=== PATIENT | male | born 1950 | race Caucasian/White ===

== ENCOUNTER → 2016-12-13 | Outpatient (CLI) | payer OTHER, MEDICARE | LOC: FIMAGING 09:55 | PROVIDERS: ATTEND Neurological Surgery | DX: M48.06 Spinal stenosis, lumbar region (principal); M54.16 Radiculopathy, lumbar region; M51.36 Other intervertebral disc degeneration, lumbar region; M51.37 Other intervertebral disc degeneration, lumbosacral region; M51.34 Other intervertebral disc degeneration, thoracic region ==

== ENCOUNTER → 2016-12-20 | Outpatient (CLI) | payer OTHER, MEDICARE ==
--- NOTE | 2016-12-20 09:43 | CPEKG ---
Heart Rate: 65 RR Interval: 923 P-R Interval: 148 QRSD Interval: 96 QT Interval: 392 QTC Interval: 408 P [place]: 68 QRS [place]: 69 T Wave [place]: 19 EKG Severity - NORMAL ECG - EKG Impression: SINUS RHYTHM Electronically Signed By: Sudhir Johnson 20-Dec-2016 14:38:28
== END ==
LOC: FCP 09:20
PROVIDERS: ATTEND Family Medicine
DX: Z01.810 Encounter for preprocedural cardiovascular examination (principal); I10 Essential (primary) hypertension

== ENCOUNTER → 2016-12-20 | Outpatient (CLI) | payer OTHER, MEDICARE | LOC: FLAB 10:03 → FIMAGING 10:03 → EDSTATUS 12:06 | PROVIDERS: ATTEND Family Medicine | DX: I10 Essential (primary) hypertension (principal); M79.605 Pain in left leg; M62.81 Muscle weakness (generalized) ==

== ENCOUNTER 2017-01-22 05:48 | Observation (INO) | payer OTHER, MEDICARE ==
[2017-01-22] MEDS ORDERED: ceFAZolin 2 GM/DEXTROSE 100 ML IV ONE (06:00)
[2017-01-22] MEDS ORDERED: CHLORHEXIDINE GLUC HIBICLENS 118 ML BTL TP ONE (06:00)
[2017-01-22] MEDS ORDERED: LR 1,000 ML IV ONE (06:11)
[2017-01-22] MEDS ORDERED: LIDOCAINE 1% 5 ML SDV ID PRN (06:11)
[2017-01-22] MEDS ORDERED: BUPIVACAINE/EPI 0.25% 30 ML SDV ONE ×2 (06:47→07:56)
[2017-01-22] MEDS ORDERED: THROMBIN (BOVINE) 5,000 UNIT VIAL TP ONE (06:47)
[2017-01-22] MEDS ORDERED: DEPO METHYLPREDNISOLONE 40 MG/ML SDV ONE (06:47)
[2017-01-22] MEDS ORDERED: BACITRACIN 50,000 UNITS/10 ML SYR IRR ONE ×2 (06:48→07:27)
[2017-01-22] MEDS ORDERED: fentaNYL 250 MCG/5 ML INJ ONE (07:09)
[2017-01-22] MEDS ORDERED: PROPOFOL/EMULSION 500 MG/50 ML BOTTLE IV ONE ×2 (07:09→08:52)
[2017-01-22] MEDS ORDERED: MIDAZOLAM 2 MG/2 ML VIAL ONE (07:11)
[2017-01-22] MEDS ORDERED: Tadalafil [Cialis] 20 MG PO PRN (07:13)
[2017-01-22] MEDS ORDERED: NAPROXEN SODIUM 220 MG TAB PO PRN (07:13)
[2017-01-22] MEDS ORDERED: HYDROmorphONE/DILAUDID 1 MG/ML SYR IVP PRN (07:14)
[2017-01-22] MEDS ORDERED: METHOCARBAMOL 750 MG TAB PO PRN (07:14)
[2017-01-22] MEDS ORDERED: ACETAMINOPHEN 325 MG TAB PO PRN (07:14)
[2017-01-22] MEDS ORDERED: POLYETHYLENE GLYCOL 3350 17 GM PKT PO PRN (07:14)
[2017-01-22] MEDS ORDERED: TEMAZEPAM 15 MG CAP PO PRN (07:14)
[2017-01-22] MEDS ORDERED: LACTULOSE 20 GM/30 ML UDCUP PO PRN (07:14)
[2017-01-22] MEDS ORDERED: DIAZEPAM 5 MG TAB PO PRN (07:14)
[2017-01-22] MEDS ORDERED: ONDANSETRON 4 MG/2 ML VIAL IVP PRN ×2 (07:14)
[2017-01-22] MEDS ORDERED: DIAZEPAM 10 MG/2 ML SYR IVP PRN (07:14)
[2017-01-22] MEDS ORDERED: NALOXONE HCL 0.4 MG/ML INJ IVP PRN (07:14)
[2017-01-22] MEDS ORDERED: diphenhydrAMINE 25 MG CAP PO PRN (07:14)
[2017-01-22] MEDS ORDERED: ONDANSETRON DISINTEGRATING 4 MG TAB PO PRN (07:14)
[2017-01-22] MEDS ORDERED: MAGNESIUM HYDROXIDE 30 ML UDCUP PO PRN (07:14)
[2017-01-22] MEDS ORDERED: BISACODYL 10 MG SUPP PR PRN (07:14)
[2017-01-22] MEDS ORDERED: oxyCODONE IR 5 MG TAB PO PRN (07:14)
[2017-01-22] MEDS ORDERED: morphINE PCA 30 MG/30 ML PCA IV PRN (07:14)
[2017-01-22] MEDS ORDERED: NS W/ 20 KCl/L 1,000 ML IV SCH (07:15)
[2017-01-22] MEDS ORDERED: LIDOCAINE 2% 5 ML SDV ONE (07:17)
[2017-01-22] MEDS ORDERED: ROCURONIUM 50 MG/5 ML VIAL ONE (07:17)
[2017-01-22] MEDS ORDERED: METOCLOPRAMIDE 10 MG/2 ML VIAL ONE (07:17)
[2017-01-22] MEDS ORDERED: DEXAMETHASONE 4 MG/ML VIAL ONE (07:17)
[2017-01-22] MEDS ORDERED: ONDANSETRON 4 MG/2 ML VIAL ONE (07:17)
[2017-01-22] MEDS ORDERED: CETIRIZINE 10 MG TAB PO PRN (09:00)
[2017-01-22] MEDS ORDERED: FAMOTIDINE 20 MG/NACL 50 ML IV SCH (09:00)
[2017-01-22] MEDS ORDERED: PHENYLEPHRINE HCL 100 MCG/ML SYR ONE (09:24)
[2017-01-22] MEDS ORDERED: SUGAMMADEX SODIUM 200 MG/2 ML VIAL IVP ONE (09:44)
[2017-01-22] MEDS ORDERED: fentaNYL 100 MCG/2 ML INJ ONE ×2 (10:26→10:50)
[2017-01-22] MEDS ORDERED: NON-FORMULARY NEW DRUG (Ranitidine Hcl [Zantac 75] 75 MG) PO PRN (10:32)
--- NOTE | 2017-01-22 10:36 | SOAPPROG ---
SOAP Progress Note Assessment/Plan: Post Op Visit: S: Awake and alert. Pt with expected lower back pain. O: AFVSS/PERRLA/EOMI no droop CN 2-12 grossly intact +lt touch 5/5 BUE/BLE = CDI A/P: 66 yo male that is s/p laminectomy L2-4 -orders in place -call with any questions or concerns -take medications as directed -pt seen by Dr Pegureo as well 01/22/17 10:32 ICD10 Worksheet Patient Problems: Problems Problem Status Onset Lumbar radicular pain Acute Lumbar stenosis Acute - ICD10 Problem Qualifiers (1) Lumbar stenosis (2) Lumbar radicular pain
[2017-01-22 11:05] VITALS: RESP 16
--- NOTE | 2017-01-22 11:12 | GOP ---
[f rep st] OPERATIVE REPORT DATE OF OPERATION: 01/22/2017 SURGEON: Dorothy Peguero MD [facility] PORTFOLIO LEADER: Jorge Alberto Kirk PA-C. PREOPERATIVE DIAGNOSIS: Lumbar spondylosis, bilateral lumbosacral radiculopathy, severe lumbar sten osis L2 through L4, left greater than right, radiculopathy, prior lumbar surgery L4-5, as well as lo wer thoracic decompression, severe multilevel degenerative disk disease. POSTOPERATIVE DIAGNOSIS: Lumbar spondylosis, bilateral lumbosacral radiculopathy, severe lumbar kenton nosis L2 through L4, left greater than right, radiculopathy, prior lumbar surgery L4-5, as well as l ower thoracic decompression, severe multilevel degenerative disk disease. PROCEDURE PERFORMED: Left L2-3 giulia laminectomy, laminotomy with left and central decompression at L2, L3, L4 with medial facetectomy, as well as bilateral L3-4 medial facetectomies, laminectomy, and bilateral decompressions L3-4 ([id number]), microscope, fluoroscopy. FINDINGS: ESTIMATED BLOOD LOSS: 50 cc. INDICATIONS: The patient is a 66-year-old gentleman who has had both thoracic decompressions and lilia mbar laminectomy at L4-5, as well as cervical arthrodesis and fusion with good result, who came in c omplaining of left greater than right radiculopathy but bilateral symptoms in both legs and some wea kness in the right leg. His MRI demonstrated interval progression of stenosis at L2-3, L3-4 compared to prior films, and I suggested a 2-level decompression. Superimposed upon this he had terrible de generative disk disease and severe multilevel foraminal stenosis that could in fact be related to hi s problem. Unfortunately, to fix this would require a multilevel lumbar fusion with instrumented sc rews and rods, and I wanted to try to avoid this if possible. Therefore, I suggested a decompressio n alone. Risk of spinal fluid leak, continued symptoms, and possible need for a much larger surgery was discussed. He understood this and wanted to try the smaller one to see if we could achieve the clinical results that we desire. DESCRIPTION OF PROCEDURE: Patient was taken to the operating room, placed in supine position. Gene ral anesthesia was begun. He was flipped prone on the Christos frame. Care was taken to pad all poin ts of contact. His back was sterilely prepped and draped in usual fashion. A localizing x-ray was taken. We made a 3 cm midline incision above the L2-3, L3-4 interspace. The subcutaneous tissue wa s dissected using Bovie cautery down to the fascia. A subperiosteal dissection was made down the in ferior lamina of L2. The complete lamina of L3 was exposed. A localizing x-ray was taken. A self- retaining retractor was placed. We introduced the operative microscope. We removed the L3 spinous process and the inferior L2 spino us process. We performed a complete bilateral laminectomy of L3, and bilateral medial facetectomy. There was significant left greater than right facet arthropathy at L3-4 as well as a degenerative s coliotic tilt at L3-4 compared to the right. We performed a central decompression initially and worked our way wider preserving the pars interart icularis bilaterally at L3. We did perform bilateral medial facetectomies and bilateral decompressi ons at L3-4. We worked our way up to the L2-3 level. We removed the ligamentum flavum and performe d a central and left paracentral decompression and performed a minimal medial facetectomy, although not much of the facet joint could be removed at L2-3 because of the steepness of the facet joint its elf. A nice decompression was obtained. We irrigated with antibiotic saline solution, saw the final x-ray confirming the extent of our decom pressions at L2-3 through 4. We then closed the incision in multiple layers using Vicryl sutures. Running PDS was placed in the skin. Steri-Strips were applied. The patient was reversed from anest hesia, extubated, and transferred to recovery room in stable condition. There were no complications . COMPLICATIONS: None. /[id number]/MODL
[2017-01-22] MEDS: HYDROCODONE/APAP 10/325 TAB PO PRN ×2 (11:49→21:25)
[2017-01-22] MEDS: SENNOSIDES/DOCUSATE SODIUM TAB PO SCH ×2 (12:17→19:52)
[2017-01-22] MEDS: LISINOPRIL 20 MG TAB PO SCH (14:10)
[2017-01-22] MEDS: FAMOTIDINE 20 MG TAB PO SCH (19:52)
--- NOTE | 2017-01-23 07:08 | NEUSURGPN ---
Date of Surgery: 01/22/17 Post Op Day: 1 Assessment/Plan: Assessment: 66 yo male that is s/p laminectomy L2-4 POD #1 Plan: -s/p laminectomy L2-L4: pt states minimal back pain with "my legs feel great" -PT/OT pending this am -plan for dc later today if passes therapies -rxs-Pt has filled already -no brace needed -follow up in 2-3 weeks for a post op visit -orders in place -call with any questions or concerns -take medications as directed -pt seen by Dr Peguero as well 01/22/17 10:32 Subjective: Awake and alert. NAD. Pt doing well and is pleased with the surgery. No luna/ neck/chest/abd or gu complaints. No f/c/n/v/d. Objective: AFVSS/PERRLA/EOMI no droop CN 2-12 grossly intact +lt touch 5/5 BUE/BLE = CDI Neuro Check Frequency: per routine Urinary Catheter in Place: No - Physician Discussed Patient with : Sudhir Patient Seen by : Sudhir Neurosurgery Physical Exam - Vitals, I&O, Labs I and O 01/22/17 01/23/17 01/24/17 05:59 05:59 05:59 Intake Total 1525 Output Total 950 Balance 575 Weight 104.326 kg Intake: Oral (ml) 650 IV Intake (ml) 600 IV Infused (ml) 275 NS W/ 20 KCl/L 1,000 ml @ 225 75 mls/hr IV CONT MYRON Rx #:[id number] ceFAZolin 1 GM/DEXTROSE 50 50 ml @ 200 mls/hr IV Q8HRS MYRON Rx#:[id number] Output: Urine (ml) 900 Toilet 900 Estimated Blood Loss (ml) 50 Other: Number of Voids Toilet 1 Vital Signs Temp Pulse Resp BP Pulse Ox 36.9 C 77 16 131/74 H 94 01/23/17 03:13 01/23/17 03:13 01/23/17 03:13 01/23/17 03:13 01/23/17 03:13 ICD10 Worksheet Patient Problems: Problems Problem Status Onset Lumbar radicular pain Acute Lumbar stenosis Acute - ICD10 Problem Qualifiers (1) Lumbar stenosis (2) Lumbar radicular pain
[2017-01-23 07:25] VITALS: BP 134/62; PULSE 70; TEMP 97.5; O2SAT 93
[2017-01-23] MEDS: HYDROCODONE/APAP 10/325 TAB PO PRN (07:27)
[2017-01-23] MEDS: LISINOPRIL 20 MG TAB PO SCH (07:27)
[2017-01-23] MEDS: FAMOTIDINE 20 MG TAB PO SCH (07:28)
[2017-01-23] MEDS: SENNOSIDES/DOCUSATE SODIUM TAB PO SCH (07:28)
[2017-01-25] MEDS ORDERED: ENOXAPARIN 40 MG/0.4 ML SYR SC SCH (09:00)
== END 2017-01-23 10:55 | disposition home or self-care (01) ==
LOC: F3N 05:48 → INTOOBSV 05:48 → F3N 11:17
PROVIDERS: ADMIT Neurological Surgery; ATTEND Neurological Surgery
PROC: B01B1ZZ Fluoroscopy of Spinal Cord using Low Osmolar Contrast (ICD-10-PCS; principal; 2017-01-22 07:30)
PROC: 00NY0ZZ Release Lumbar Spinal Cord, Open Approach (ICD-10-PCS; principal; 2017-01-22 07:30)
PROC: 8E0WXBZ Computer Assisted Procedure of Trunk Region (ICD-10-PCS; principal; 2017-01-22 07:30)
DX: M48.06 Spinal stenosis, lumbar region (principal); M48.04 Spinal stenosis, thoracic region; Z98.1 Arthrodesis status; M51.36 Other intervertebral disc degeneration, lumbar region; M54.16 Radiculopathy, lumbar region
CPT/HCPCS: 63047; 63048; 76001; 97161; 97165; G8978; G8979; G8980; G8987; G8988; G8989; J0690; J1100; J2250; J2370; J2405; J2704; J2765; J3010; J1030

== ENCOUNTER → 2017-02-27 | Outpatient (CLI) | payer OTHER, MEDICARE | LOC: FIMAGING 06:42 | PROVIDERS: ATTEND Physician Assistant | DX: M51.34 Other intervertebral disc degeneration, thoracic region (principal); M47.894 Other spondylosis, thoracic region; M48.04 Spinal stenosis, thoracic region; M48.06 Spinal stenosis, lumbar region; M99.72 Connective tissue and disc stenosis of intervertebral foramina of thoracic region; M99.73 Connective tissue and disc stenosis of intervertebral foramina of lumbar region; M12.88 Other specific arthropathies, not elsewhere classified, other specified site; M51.86 Other intervertebral disc disorders, lumbar region; G95.89 Other specified diseases of spinal cord ==

== ENCOUNTER 2017-09-17 09:58 | Inpatient (IN) | payer OTHER, MEDICARE ==
[~2017-09-17 09:58] MED LIST: ROPIVACAINE 0.2% 80 MG, EPINEPHrine 0.2 MG, KETOROLAC TROMETHAMINE 30 MG in SYRINGE 0 ML IU ONE; TRANEXAMIC ACID 3,000 MG in NS 50 ML IRR ONE; TRANEXAMIC ACID 3,000 MG/50 ML BAG IRR ONE
[2017-09-17] MEDS ORDERED: ACETAMINOPHEN 325 MG TAB PO ONE (10:27)
[2017-09-17] MEDS ORDERED: FAMOTIDINE 20 MG TAB PO ONE (10:27)
[2017-09-17] MEDS ORDERED: DEXAMETHASONE 4 MG/ML VIAL IVP ONE (10:27)
[2017-09-17] MEDS ORDERED: ceFAZolin 2 GM/SWFI 2 GM/20 ML SYR IVP ONE (10:27)
[2017-09-17] MEDS ORDERED: LR 1,000 ML IV ONE (10:33)
[2017-09-17] MEDS ORDERED: LIDOCAINE 1% 2 ML INJ ID PRN (10:33)
--- NOTE | 2017-09-17 11:33 | PDANEPAE ---
ANE History of Present Illness 67 year old male presents for left total hip arthroplasty. ANE Past Medical History - Cardiovascular History Hx Hypertension: No Hx Arrhythmias: No Hx Chest Pain: No Hx Coronary Artery / Peripheral Vascular Disease: No Hx CHF / Valvular Disease: No Hx Palpitations: No - Pulmonary History Hx COPD: No Hx Asthma/Reactive Airway Disease: No Hx Recent Upper Respiratory Infection: Yes Hx Oxygen in Use at Home: No Hx Sleep Apnea: No Sleep Apnea Screening Result - Last Documented: Negative Pulmonary History Comment: OCCASIONAL CIGAR. BRONCHITIS 07/2017 - Neurologic History Hx Cerebrovascular Accident: No Hx Seizures: No Hx Dementia: No - Endocrine History Hx Diabetes: No Hypothyroid: No Hyperthyroid: No Obesity: mild - Renal History Hx Renal Disorders: No - Liver History Hx Hepatic Disorders: No - Neurological & Psychiatric Hx Hx Neurological and Psychiatric Disorders: No - Cancer History Hx Cancer: No - Congenital Disorder History Hx Congenital Disorders: No - GI History GERD: mild Hx Gastrointestinal Disorders: No Gastrointestinal History Comment: OCCASIONAL REFLUX USES OTC - Other Health History Other Health History: OSTEOARTHRITS. ED - Chronic Pain History Chronic Pain: Yes (LT HIP) - Surgical History Prior Surgeries: LUMBAR LAMINECTOMY 01/22/2017. LT KNEE SCOPE 05/2016. CERVICAL FUSION 2010. LUMBAR LAMINECTOMY 2010. FX R FEMUR. FX R PELVIC. ACL R KNEE ANE Review of Systems Review of systems is: negative Review of Systems: - Exercise capacity Exercise capacity: >=4 METS METS (RN): 4 METS ANE Patient History - Allergies Allergies/Adverse Reactions: No Allergies [NKDA] Allergy (Verified 05/22/16 13:09) SEASONAL Allergy (Uncoded 05/22/16 13:09) - Home Medications Home medications: home medication list seen and reviewed Home Medications: Cetirizine HCl/Pseudoephedrine [Zyrtec-D Tablet] 1 each PO DAILY PRN 12/26/16 [ Last Taken 01/21/17] Tadalafil [Cialis] 20 mg PO DAILY PRN 12/26/16 [Last Taken 01/01/17] Multivitamins [Multivitamin (*)] 1 each PO DAILY 08/07/17 [Last Taken Unknown] Naproxen Sodium [Aleve 220 MG (*)] 220 mg PO DAILY PRN 08/07/17 [Last Taken Unknown] - NPO status NPO Status: no food or drink >8 hours NPO Since - Liquids (Date): 09/17/17 NPO Since - Liquids (Time): 07:00 NPO Since - Solids (Date): 09/16/17 NPO Since - Solids (Time): 19:30 - Anes Hx Anes Hx: no prior problems - Smoking Hx Smoking Status: Former smoker Marijuana use: No - Alcohol Use Alcohol Use: Occasionally - Family Anes Hx Family Anes Hx: neg - N/A Family Hx Anesthesia Complications: NONE ANE Labs/Vital Signs - Vital Signs Vital Signs: reviewed preoperatively; see RN documention for details Blood Pressure: 128/82 Heart Rate: 79 Respiratory Rate: 14 O2 Sat (%): 92 Height: 185.42 cm Weight: 108.862 kg ANE Physical Exam - Airway Neck exam: FROM Mallampati Score: Class 2 Mouth exam: normal dental/mouth exam - Pulmonary Pulmonary: no respiratory distress - Cardiovascular Cardiovascular: regular rate and rhythym - ASA Status ASA Status: II ANE Anesthesia Plan Anesthesia Plan: general endotracheal anesthesia (General Anesthesia as back-up plan.), MAC, spinal
--- NOTE | 2017-09-17 11:43 | PDHPUP ---
History & Physical Update H&P update statement: This history and physical update is based on an assessment of the patient which was completed after admission or registration (within 24 hours), but prior to the surgery/procedure. H&P update: H&P reviewed & patient examined, no change in patient's condition since H&P completed
[2017-09-17] MEDS ORDERED: MIDAZOLAM 2 MG/2 ML VIAL IVP ONE (12:10)
[2017-09-17] MEDS ORDERED: MIDAZOLAM 2 MG/2 ML VIAL ONE (12:15)
[2017-09-17] MEDS ORDERED: PROPOFOL/EMULSION 500 MG/50 ML BOTTLE IV ONE ×2 (12:17→12:51)
[2017-09-17] MEDS ORDERED: METOCLOPRAMIDE 10 MG/2 ML VIAL IVP PRN (12:42)
[2017-09-17] MEDS ORDERED: MAGNESIUM HYDROXIDE 30 ML UDCUP PO PRN (12:42)
[2017-09-17] MEDS ORDERED: ONDANSETRON 4 MG/2 ML VIAL IVP PRN ×2 (12:42→13:17)
[2017-09-17] MEDS ORDERED: ONDANSETRON DISINTEGRATING 4 MG TAB PO PRN (12:42)
[2017-09-17] MEDS ORDERED: DIPHENOXYLATE/ATROPINE LOMOTIL 1 TAB PO PRN (12:42)
[2017-09-17] MEDS ORDERED: POLYETHYLENE GLYCOL 3350 17 GM PKT PO PRN (12:42)
[2017-09-17] MEDS ORDERED: TEMAZEPAM 15 MG CAP PO PRN (12:42)
[2017-09-17] MEDS ORDERED: LACTULOSE 20 GM/30 ML UDCUP PO PRN (12:42)
[2017-09-17] MEDS ORDERED: PROMETHAZINE HCL 25 MG/ML INJ IVP PRN (12:42)
[2017-09-17] MEDS ORDERED: CYCLOBENZAPRINE 10 MG TAB PO PRN (12:42)
[2017-09-17] MEDS ORDERED: diphenhydrAMINE 25 MG CAP PO PRN (12:42)
[2017-09-17] MEDS ORDERED: PROMETHAZINE HCL 25 MG SUPPR PR PRN (12:42)
[2017-09-17] MEDS ORDERED: BISACODYL 10 MG SUPP PR PRN (12:42)
[2017-09-17] MEDS ORDERED: LIDOCAINE 2% JELLY 5 ML TUBE ONE (12:57)
[2017-09-17] MEDS ORDERED: LR 1,000 ML IV SCH (13:00)
[2017-09-17] MEDS ORDERED: OXYCODONE/APAP 5/325 TAB PO PRN (13:17)
[2017-09-17] MEDS ORDERED: LR 500 ML IV PRN (13:17)
[2017-09-17] MEDS ORDERED: fentaNYL 100 MCG/2 ML INJ IVP PRN (13:17)
[2017-09-17] MEDS ORDERED: HYDROmorphONE/DILAUDID 1 MG/ML INJ IVP PRN (13:17)
[2017-09-17] MEDS ORDERED: NALOXONE HCL 0.4 MG/ML INJ IVP PRN (13:17)
--- NOTE | 2017-09-17 13:48 | POSTOPPROG ---
Post Op Note Date of Operation: 09/17/17 Surgeon: Angel Lopez Squeegee Tender: abisai lopez Anesthesiologist: dr. dorman Anesthesia: Spinal Pre-op Diagnosis: left hip OA Post-op Diagnosis: same Indication: left hip pain due to OA that failed conservative measures Procedure: L SANTY ant approach Findings: severe hip OA Inf/Abcess present in the surg proc area at time of surgery?: No EBL: 100-500
--- NOTE | 2017-09-17 16:38 | POSTANESTH ---
Post Anesthetic Evaluation Cardiovascular Status: Normal, Stable, Similar to Pre-Op Cond Respiratory Status: Normal, Stable, Similar to Pre-op Cond. Level of Consciousness/Mental Status: Can Participate in Eval, Alert and Oriented Pain Control: Adequate, Prn Tx Ordered Nausea/Vomiting Control: Adequate, Prn Tx Ordered Complications Possibly Related to Anesthesia: None Noted
[2017-09-17] MEDS: ACETAMINOPHEN 325 MG TAB PO SCH ×2 (17:09→22:49)
[2017-09-17] MEDS: SENNOSIDES/DOCUSATE SODIUM TAB PO SCH (19:52)
[2017-09-17] MEDS: FAMOTIDINE 20 MG TAB PO SCH (19:53)
[2017-09-17] MEDS: ceFAZolin 2 GM/DEXTROSE 100 ML IV SCH (19:53)
[2017-09-17] MEDS: ASPIRIN EC 81 MG TAB PO SCH (19:53)
[2017-09-17] MEDS: oxyCODONE IR 5 MG TAB PO PRN (22:50)
[2017-09-18] MEDS: ceFAZolin 2 GM/DEXTROSE 100 ML IV SCH (04:34)
[2017-09-18 05:21] LABS: HEMATOCRIT 37.4 % (40.0-51.0); HEMOGLOBIN 12.5 g/dL (13.7-17.5)
[2017-09-18] MEDS: ACETAMINOPHEN 325 MG TAB PO SCH (05:33)
[2017-09-18] MEDS: oxyCODONE IR 5 MG TAB PO PRN (05:34)
--- NOTE | 2017-09-18 05:44 | GOP ---
[f rep st] OPERATIVE REPORT DATE OF OPERATION: 09/17/2017 SURGEON: Ashanti Suero MD PHARMACY CASHIER: KAPIL Kraft. ANESTHESIA: Spinal. PREOPERATIVE DIAGNOSIS: Left hip osteoarthritis. POSTOPERATIVE DIAGNOSIS: Left hip osteoarthritis. PROCEDURE PERFORMED: Left total hip arthroplasty with x-ray. FINDINGS: ESTIMATED BLOOD LOSS: 200 cc. INDICATIONS: The patient has progressively worsening arthritis of the hip which has failed medical m anagement. The patient understands the treatment options including continued non-operative care and has selected surgical intervention. The patient has decided to undergo total hip arthroplasty via th e direct anterior approach, understanding the risks of the procedure including, but not limited to, n eurovascular injury, infection, persistent pain, component wear and loosening, deep venous thrombosis , pulmonary embolism, limb length inequality, hip instability (including dislocation), and intra-oper ative fractures. DESCRIPTION OF PROCEDURE: After proper identification of the patient including verification and kendra ing the surgical site, the patient was brought to the operating room and placed in the supine positio n. All bony prominences were well padded. Anesthesia was induced without complication and intraveno us prophylactic antibiotics were administered prior to skin incision. The operative leg was placed in the Trumpf Arch table extension and the well leg in a Yellofin leg ho lder. The patient was prepped and draped in the usual sterile fashion. The C-arm was draped for int ra-operative fluoroscopy to check acetabular position, femoral component position including leg lengt h and femoral offset. Attention was then drawn to surgical exposure of the hip. An incision was made with a #10 Bard Mayra r blade starting 3 cm lateral and 3 cm distal to the anterior superior iliac spine measuring 8-10 cm and coursing distally toward the greater trochanter. The skin and subcutaneous tissues were divided sharply down to the fascia richardson. The fascia richardson was incised in line with the skin incision exposing the underlying tensor fascia richardson muscle. The muscle was bluntly elevated from the fascia and the f irst extracapsular Cobra retractor was placed laterally at the junction of the superior femoral neck and greater trochanter. The lateral femoral circumflex vessels were identified, cauterized, and divi ded with the Aquamantys bipolar cautery. The deep investing fascia of the TFL was divided to allow p sue mobilization of the muscle preventing damage during the retraction. The reflected head of the rectus femoris muscle was elevated off the anterior hip capsule and a medial Cobra retractor was plac ed just proximal to the lesser trochanter. The anterior capsulotomy was made sharply from the superolateral acetabulum to the saddle junction of the superior femoral neck and greater trochanter, then coursing inferomedial towards the lesser troc hanter. The retractors were then placed in the intracapsular position for femoral neck osteotomy. C orresponding to pre-operative templating, the osteotomy was made with the oscillating saw carefully p rotecting the greater trochanter and soft tissues. The femoral head was removed from the acetabulum with a corkscrew and confirmed to be severely arthritic with exposed bone, deformity and osteophytes. Similar findings were confirmed in the acetabulum. The Arch table extension was then placed in 40 degrees external rotation. Attention was then drawn to the acetabular preparation. After placement of the anterior and posterio r Cobra retractors outside the labrum and intracapsular, the circumferential labrum was removed sharp ly. The foveal contents were then removed and hemostasis obtained with cautery. The first reamer selected was sized using the removed femoral head. Reaming began with medialization and then commenced in 2 mm increments at 45 degrees of abduction and 15 degrees of anteversion using fluoroscopic navigation. Reaming ceased 1 mm less than the definitive acetabular component and fitz esponded to the pre-operative templating. The final acetabular component was inserted using fluorosc opy to achieve proper orientation yielding excellent purchase and stability in the acetabulum. The f inal acetabular liner was then placed and its seating confirmed. Attention was then turned to the femur. The Arch table extension was placed in extension and adducti on, delivering the osteotomized femoral neck into the wound. A 2-pronged femoral elevator was placed at the calcar and another at the tip of the greater trochanter. The posterolateral capsule was rele ased with cautery allowing mobilization of the femur lateral and anterior for preparation. The exter nal rotators were visualized and preserved. A curette and rongeur were used to open the starting poi nt for broaching. Serial broaching started with the #0 broach and ended with the broach that exhibit ed excellent fit in the proximal femur. A change in pitch during mallet strikes was accompanied by t he inability to advance the broach any further. The trial reduction was performed and fluoroscopic n avigation was utilized to check limb length. Adjustments were made to equalize limb length according ly. After the final trials were accepted they were removed and the wound was copiously lavaged. The femo ral component was seated to the same depth as the final broach and the femoral head was impacted onto the clean trunnion. The hip was then reduced for the final time and once more fluoroscopy was used to check that limb length equality was achieved. The wound was irrigated and closed in layers, the fascia richardson with 2-0 Quill, the subcutaneous tissue with 2-0 Quill, and the skin with Dermabond. Sterile dressings were applied. Final sharps and spon ge counts were accurate. The patient was then transferred to a hospital bed and brought to the [facility] room in stable condition. IMPLANTS: Accolade II size 8 at 127. Acetabular component is a 56 mm Tritanium. The liner is a Tri dent X3, 36 mm. The head is a Biolox Delta 36 mm plus 7.5. /[id number]/MODL
[2017-09-18 08:42] VITALS: BP 116/72; TEMP 97.9; O2SAT 94
--- NOTE | 2017-09-18 09:02 | SOAPPROG ---
SOAP Progress Note Assessment/Plan: Assessment: Patient is doing well POD 1 s/p L SANTY 1) pain management: pain well controlled on oral pain meds 2) VTE ppx: recommend ASA 81 mg BID for 4 weeks, RIP hinojosa and STEVENs 3) Anemia: level expected initially postop 4) D/c planning: d/c to home today pending release from PT Plan: 09/18/17 08:59 Subjective: Romeo is doing well today, denies SOB, chest pain and N/V. Objective: Vital Signs Temp Pulse Resp BP Pulse Ox 36.6 C 108 H 18 116/72 94 09/18/17 08:00 09/18/17 08:00 09/18/17 08:00 09/18/17 08:00 09/18/17 08:00 Laboratory Results 09/18/17 04:35 09/17/17 09/18/17 09/19/17 05:59 05:59 05:59 Intake Total 1475 240 Output Total 1300 550 Balance 175 -310 LLE: incision dressing is clean and dry, NVI, +pf/df ICD10 Worksheet Patient Problems: Problems Problem Status Onset Primary localized osteoarthritis of left hip Acute Lumbar radicular pain Acute Lumbar stenosis Acute
[2017-09-18] MEDS: SENNOSIDES/DOCUSATE SODIUM TAB PO SCH (09:09)
[2017-09-18] MEDS: FAMOTIDINE 20 MG TAB PO SCH (09:10)
[2017-09-18] MEDS: ASPIRIN EC 81 MG TAB PO SCH (09:10)
[2017-09-18 09:48] VITALS: RESP 16
[2017-09-18 10:17] VITALS: PULSE 88
--- NOTE | 2017-09-18 11:50 | ASDISCHSUM ---
Discharge Information Plan Status:Home with No Needs Medically Cleared to Leave:09/17/2017 Discharge Date:09/18/2017 10:36 AM CM D/C Disposition:Home, Routine, Self-Care ADT D/C Disposition:Home, Routine, Self-Care Projected Discharge Date:09/18/2017 10:36 AM Transportation at D/C:Family Discharge Delay Reason: Follow-Up Date:09/18/2017 10:36 AM Discharge Slot: Final Diagnosis: Placement Information Patient Contact Information Contact Name:BRIGID Relationship: Address:[address] City:[place] Alternate Phone: [facility]/Zip Code:[place] [address] Email: Financial Information Financial Class:MC Primary Plan Desc:MEDICARE INPATIENT Primary Plan Number:[id number] Secondary Plan Desc:[employer]/MDR SUPPLEMENT Secondary Plan Number:[id number] Assessment Information Intervention Information
--- NOTE | 2017-09-22 20:54 | GDS ---
[f rep st] DISCHARGE SUMMARY ADMISSION DIAGNOSIS: Left hip osteoarthritis. DISCHARGE DIAGNOSIS: Left hip osteoarthritis. PROCEDURE: Left total hip arthroplasty. VTE PROPHYLAXIS: Recommend aspirin 81 mg twice daily for 4 weeks. BRIEF DESCRIPTION OF HOSPITAL STAY: Patient was admitted for an elective joint arthroplasty. The pa damiannt tolerated the procedure well and has passed physical therapy. The patient was given appropriat e antibiotic prophylaxis and venous thromboembolism prophylaxis. The patient's pain was well control led on oral pain medication, patient was holding down food, and had urinated. Decision was made to d ischarge the patient. The patient was given post-operative prescriptions pre-operatively. PLAN: Please follow up as scheduled, Dr. Suero's office 10/02 at 9:00 a.m. /[id number]/MODL
== END 2017-09-18 10:36 | disposition home or self-care (01) | DRG 470 ==
LOC: F3N 09:58
PROVIDERS: ADMIT Orthopaedic Surgery; ATTEND Orthopaedic Surgery
PROC: 0SRB04Z Replacement of Left Hip Joint with Ceramic on Polyethylene Synthetic Substitute, Open Approach (ICD-10-PCS; principal; 2017-09-17 12:15)
DX: M16.12 Unilateral primary osteoarthritis, left hip (principal); Z98.1 Arthrodesis status
CPT/HCPCS: 97161-GP; 97165-GO; G8978-GP-CI; G8979-GP-CI; G8980-GP-CI; G8987-GO-CI; G8988-GO-CI; G8989-GO-CI; J0171; J0690; J1100; J1885; J2250; J2704; J2795